=== PATIENT | male | born 1955 | race Caucasian/White ===

== ENCOUNTER 2020-09-09 11:27 | Emergency (ER) | payer SELFPAY ==
[2020-09-09 11:59] VITALS: BMI 33.6
[2020-09-09 13:26] LABS: BASO % 0.7 % (0-2.0); EOS % 0.4 % (0-4.5); HEMATOCRIT 44.9 % (35.4-49); HEMOGLOBIN 16.2 GM/dL (11.7-16.9); LYMPH % 29.8 % (8-40); MCH 31.1 pg (25.7-33.7); MCHC 36.1 g/dl (32.0-35.9); MEAN PLT VOLUME 9.6 fl (7.5-11.1); MONO % 6.4 % (3.8-10.2); NEUT % 62.7 % (42.8-82.8); PLATELET COUNT 94 K/MM3 (134-434); RBC 5.23 M/mm3 (4.00-5.60); RDW 13.3 % (11.9-15.9); WHITE BLOOD COUNT 9.1 K/mm3 (4.0-10.0)
[2020-09-09 13:46] LABS: CHLORIDE 101 mmol/L (98-107); SODIUM 140 mmol/L (136-145)
[2020-09-09 13:48] LABS: ANION GAP 7 MMOL/L (8-16); BLOOD UREA NITROGEN 10.2 mg/dL (7-18); CALCIUM 9.5 mg/dL (8.5-10.1); CO2 31 mmol/L (21-32); GLUCOSE,RANDOM 101 mg/dL (74-106)
[2020-09-09] MEDS ORDERED: POTASSIUM CHLORIDE TABS 20 MEQ TABLET.ER (FP) PO ONE ×2 (13:50→14:07)
[2020-09-09 13:52] LABS: CREATININE 1.1 mg/dL (0.55-1.3)
[2020-09-09 14:36] VITALS: BP 140/89; PULSE 89; TEMP 98.9
== END 2020-09-09 15:06 | disposition home or self-care (01) ==
LOC: JER 11:27
DX: I10 Essential (primary) hypertension (principal)
CPT/HCPCS: 36415; 71046-TC-FY; 80048; 82550; 82553; 84484; 85025; 93005; 93010; 99285-25